=== PATIENT | male | born 1955 | race Caucasian/White ===

== ENCOUNTER 2016-10-24 19:54 | Emergency (ER) | payer OTHER ==
[~2016-10-24] VITALS: Ht 190.5 cm; Wt 97.7 kg
[~2016-10-24 19:54] MED LIST: ACTOS45 MG PO; ALDACTONE25 MG PO; ALTACE1.25 M1; ALTACE10 MG PO; AMARYL1 MG; AMARYL4 MG PO; AMLODIPINE BESY10 MG PO; AMOXICILLIN500 M1 PO; ASPIR-LOW81 MG PO; ASPIR-TRIN325 M1 PO; CARVEDILOL25 MG PO; COUMADIN1 MG PO; COUMADIN3 MG PO; FLAGYL250 MG PO; FLAGYL500 MG PO; FLORASTOR250 MG PO; FORTAMET500 M1; FUROSEMIDE40 MG PO; GLIMEPIRIDE4 MG PO; GLUCOPHAGE1000 MG PO; GLUCOPHAGE500 MG PO; HUMALOG100 UNIT/2 SC; HYDRALAZINE HCL25 MG PO; JANUVIA100 MG PO; LANTUS 3 M100 UNITS1 SC; LASIX40 MG PO; LEVEMIR FL100 UNITS/ SC; LIPITOR40 MG PO; LOVENOX100 MG/1 M SC; METFORMIN HCL1000 MG PO; METRONIDAZOLE500 MG PO; MIRALAX17 GM PO; NOVOLOG PE100 UNITS/ SC; ONDANSETRON HCL4 MG PO; PERCOCET 5/31 TABLET PO; PLAVIX75 MG PO; ROCEPHIN1000 MG IM; SPIRONOLACTONE25 MG PO; TOPROL XL50 MG; TRICOR145 MG PO; VANCOMYCIN1 GM/250 M IV; WARFARIN SODIUM1 MG PO; WARFARIN SODIUM5 MG PO; XARELTO15 MG PO; ZOFRAN4 MG PO; ZYVOX600 MG PO
[2016-10-24 20:14] VITALS: BP 130/77
[2016-10-24 20:32] LABS: POINT-OF-CARE METER ID UU13113778; POINT-OF-CARE USER ID 608261302
[2016-10-24 22:45] LABS: HEMATOCRIT 30.7 % (38.0-50.0); MCH 29.3 PG (29.0-34.0); MCHC 33.2 G/DL (30.0-36.0); MCV 88.2 FL (86-99); MEAN PLAT.VOLUME 9.3 uM^3 (9.0-12.4); PLATELET COUNT 373 K/uL (156-360); RBC DIS.WIDTH-CV 15.7 % (11.8-14.6); RBC DIS.WIDTH-SD 49.3 % (39-53); RED BLOOD COUNT 3.48 M/uL (4.00-5.50); WHITE BLOOD COUNT 7.6 K/uL (4.1-10.2)
[2016-10-24 22:53] LABS: CHLORIDE 94 mEq/L (99-109); POTASSIUM 4.7 mEq/L (3.7-5.4); SODIUM 127 mEq/L (136-147)
[2016-10-24 22:54] LABS: GLUCOSE 354 mg/dL (70-99)
[2016-10-24 22:56] LABS: ANION GAP 12 MEQ/L (2-14)
[2016-10-24 22:58] LABS: GFR ESTIMATE (CALCULATED) 41 mL/min/
[2016-10-24 22:59] LABS: UREA NITROGEN (BUN) 54 mg/dL (9-23)
== END 2016-10-24 23:40 | disposition left against medical advice (07) ==
LOC: EME 19:54
PROVIDERS: Emergency Medicine
DX: E11.65 Type 2 diabetes mellitus with hyperglycemia (principal); R53.1 Weakness; Z79.4 Long term (current) use of insulin; Z53.21 Procedure and treatment not carried out due to patient leaving prior to being seen by health care provider
CPT/HCPCS: 80048; 81003; 82009; 82948; 85027; 87086

== ENCOUNTER 2016-10-26 08:16 | Inpatient (IN) | payer OTHER ==
[~2016-10-26] VITALS: Ht 190.5 cm; Wt 89.1 kg
[2016-10-26 09:06] LABS: EOSINOPHIL (%) 0 % (0-5); IMMATURE GRANULOCYTE (%) 1.3 % (0.0-0.7); IMMATURE GRANULOCYTE COUNT 1.5 K/uL; LYMPHOCYTE COUNT 0.8 K/uL (1.0-2.8); MCH 28.9 PG (29.0-34.0); MCHC 32.4 G/DL (30.0-36.0); MCV 89.2 FL (86-99); MEAN PLAT.VOLUME 9.4 uM^3 (9.0-12.4); MONOCYTE (%) 7.6 % (3-12); MONOCYTE COUNT 0.9 K/uL (0-0.8); NEUTROPHIL (%) 83.7 % (45-76); NEUTROPHIL COUNT 9.7 K/uL (1.8-6.4); PLATELET COUNT 299 K/uL (156-360); RBC DIS.WIDTH-CV 15.7 % (11.8-14.6); RBC DIS.WIDTH-SD 49.5 % (39-53); RED BLOOD COUNT 3.25 M/uL (4.00-5.50); WHITE BLOOD COUNT 11.6 K/uL (4.1-10.2)
[2016-10-26 09:17] LABS: INTER. NORMALIZED RATIO 2.5; PTT 38.4 (25-32)
[2016-10-26 09:40] LABS: ANION GAP 13 MEQ/L (2-14); CHLORIDE 94 MEQ/L (99-109); GFR ESTIMATE (CALCULATED) 55 mL/min/; GLUCOSE 353 mg/dL (70-99); SAMPLE HEMOLYSIS CHECK 0; SAMPLE ICTERIC CHECK 0; SAMPLE LIPEMIA CHECK 0; SODIUM 128 MEQ/L (136-147); UREA NITROGEN (BUN) 41 mg/dL (9-23)
[2016-10-26 09:50] LABS: BASE EXCESS -3.3 mEq/L (-3 to +3); BICARBONATE 21.1 mEq/L (22-26); METHEMOGLOBIN 0.1 % (0-1.5); PCO2 34 mm Hg (35-45); PO2 64 mm Hg (80-100)
[2016-10-26 09:51] LABS: COMMENTS - BLOOD GASES A+C+; SITE RR
[2016-10-26 09:52] LABS: DEVICE RA; TOTAL RESP RATE 14 resp/min
[2016-10-26 10:01] LABS: TROP-I INTERPRETATION NEGATIVE; TROPONIN-I 0.05 ng/mL (0.0-0.30)
[2016-10-26 12:11] LABS: POINT-OF-CARE METER ID UU14100415
[2016-10-26] MEDS ORDERED: COUMADIN4 MG PO (13:42)
[2016-10-26] MEDS ORDERED: NOVOLOG PE100 UNITS/ SC (13:45)
[2016-10-26] MEDS ORDERED: METOLAZONE2.5 MG PO (13:46)
[2016-10-26] MEDS ORDERED: K-DUR20 MEQ PO (13:46)
[2016-10-26 13:49] LABS: POINT-OF-CARE METER ID UU14100415
[2016-10-26 14:34] LABS: POINT-OF-CARE METER ID UU14100415
[2016-10-26 16:10] LABS: POINT-OF-CARE METER ID UU14100415
[2016-10-26 17:27] VITALS: BP 129/62
[2016-10-26 19:16] LABS: POINT-OF-CARE METER ID UU14100415
[2016-10-26 20:25] VITALS: BP 144/70
[2016-10-27] VITALS (7 sets, daily range): BP systolic 117–153; BP diastolic 58–81
[2016-10-27 06:07] LABS: HEMATOCRIT 27.4 % (38.0-50.0); MCH 29.2 PG (29.0-34.0); MCHC 32.5 G/DL (30.0-36.0); MCV 89.8 FL (86-99); MEAN PLAT.VOLUME 9.3 uM^3 (9.0-12.4); PLATELET COUNT 249 K/uL (156-360); RBC DIS.WIDTH-CV 16.2 % (11.8-14.6); RBC DIS.WIDTH-SD 52.8 % (39-53); RED BLOOD COUNT 3.05 M/uL (4.00-5.50)
[2016-10-27 06:16] LABS: INTER. NORMALIZED RATIO 1.9; PROTHROMBIN TIME 19.4 (9.2-11.2)
[2016-10-27 06:30] LABS: ANION GAP 6 MEQ/L (2-14); CHLORIDE 100 MEQ/L (99-109); GFR ESTIMATE (CALCULATED) > 59 mL/min/; GLUCOSE 146 mg/dL (70-99); POTASSIUM 4.2 MEQ/L (3.7-5.4); SAMPLE HEMOLYSIS CHECK 0; SAMPLE ICTERIC CHECK 0; SAMPLE LIPEMIA CHECK 0; SODIUM 133 MEQ/L (136-147); UREA NITROGEN (BUN) 35 mg/dL (9-23)
[2016-10-27 12:15] LABS: HEMATOCRIT 26.6 % (38.0-50.0); MCH 28.5 PG (29.0-34.0); MCHC 31.6 G/DL (30.0-36.0); MCV 90.2 FL (86-99); MEAN PLAT.VOLUME 9.7 uM^3 (9.0-12.4); PLATELET COUNT 262 K/uL (156-360); RBC DIS.WIDTH-CV 16.4 % (11.8-14.6); RBC DIS.WIDTH-SD 54.8 % (39-53); RED BLOOD COUNT 2.95 M/uL (4.00-5.50); WHITE BLOOD COUNT 11.5 K/uL (4.1-10.2)
[2016-10-27 12:41] LABS: Estimated Average Glucose 341 mg/dL (70-123)
[2016-10-27 13:01] LABS: POINT-OF-CARE METER ID UU13113700
[2016-10-27 13:26] LABS: HEMOGLOBIN A1c (GLYCOHEMOGLOB) 13.5 % HGB (Below 5.7)
[2016-10-27 20:35] LABS: POINT-OF-CARE METER ID UU13113700
[2016-10-28] VITALS (7 sets, daily range): BP systolic 102–148; BP diastolic 57–75
[2016-10-28 06:31] LABS: GFR ESTIMATE (CALCULATED) > 59 mL/min/; INTER. NORMALIZED RATIO 1.6; PROTHROMBIN TIME 16.9 (9.2-11.2)
[2016-10-28 08:42] LABS: POINT-OF-CARE METER ID UU14162513
[2016-10-28 08:42] LABS: POINT-OF-CARE METER ID UU14162513
[2016-10-28 13:10] LABS: POINT-OF-CARE METER ID UU14162513
[2016-10-28 16:47] LABS: POINT-OF-CARE METER ID UU14162513
[2016-10-29] VITALS (7 sets, daily range): BP systolic 108–141; BP diastolic 62–72
[2016-10-29 07:39] LABS: INTER. NORMALIZED RATIO 1.7; PROTHROMBIN TIME 18.1 (9.2-11.2)
[2016-10-29 07:42] LABS: EOSINOPHIL (%) 0.2 % (0-5); HEMATOCRIT 25.4 % (38.0-50.0); IMMATURE GRANULOCYTE (%) 1.1 % (0.0-0.7); IMMATURE GRANULOCYTE COUNT 0.2 K/uL; LYMPHOCYTE COUNT 0.6 K/uL (1.0-2.8); MCH 28.1 PG (29.0-34.0); MCHC 31.5 G/DL (30.0-36.0); MCV 89.1 FL (86-99); MEAN PLAT.VOLUME 9.5 uM^3 (9.0-12.4); MONOCYTE (%) 6.8 % (3-12); MONOCYTE COUNT 1.1 K/uL (0-0.8); NEUTROPHIL (%) 87.9 % (45-76); NEUTROPHIL COUNT 13.6 K/uL (1.8-6.4); PLATELET COUNT 261 K/uL (156-360); RBC DIS.WIDTH-SD 51.8 % (39-53); RED BLOOD COUNT 2.85 M/uL (4.00-5.50)
[2016-10-29 07:43] LABS: WHITE BLOOD COUNT 15.5 K/uL (4.1-10.2)
[2016-10-29 07:50] LABS: ALKALINE PHOSPHATASE 124 IU/L (3-129); ANION GAP 9 MEQ/L (2-14); CHLORIDE 99 MEQ/L (99-109); GFR ESTIMATE (CALCULATED) > 59 mL/min/; GLUCOSE 144 mg/dL (70-99); POTASSIUM 4.1 MEQ/L (3.7-5.4); SAMPLE HEMOLYSIS CHECK 0; SAMPLE ICTERIC CHECK 0; SAMPLE LIPEMIA CHECK 0; SODIUM 131 MEQ/L (136-147); TOTAL BILIRUBIN 0.5 MG/DL (0.0-1.0); UREA NITROGEN (BUN) 31 mg/dL (9-23)
[2016-10-29 16:55] LABS: POINT-OF-CARE USER ID STWLMB34
[2016-10-30] VITALS (8 sets, daily range): BP systolic 105–127; BP diastolic 60–89
[2016-10-30 07:27] LABS: INTER. NORMALIZED RATIO 2.2
[2016-10-30 07:42] LABS: ANION GAP 7 MEQ/L (2-14); CHLORIDE 101 MEQ/L (99-109); GFR ESTIMATE (CALCULATED) > 59 mL/min/; GLUCOSE 153 mg/dL (70-99); MAGNESIUM 1.7 mg/dl (1.3-2.7); POTASSIUM 4.3 MEQ/L (3.7-5.4); SAMPLE HEMOLYSIS CHECK 0; SAMPLE ICTERIC CHECK 0; SAMPLE LIPEMIA CHECK 0; SODIUM 130 MEQ/L (136-147); UREA NITROGEN (BUN) 30 mg/dL (9-23)
[2016-10-30 08:23] LABS: EOSINOPHIL (%) 0.3 % (0-5); IMMATURE GRANULOCYTE COUNT 0.1 K/uL; LYMPHOCYTE COUNT 0.9 K/uL (1.0-2.8); MCH 28.5 PG (29.0-34.0); MCHC 31.5 G/DL (30.0-36.0); MCV 90.5 FL (86-99); MEAN PLAT.VOLUME 9.6 uM^3 (9.0-12.4); MONOCYTE COUNT 0.9 K/uL (0-0.8); NEUTROPHIL COUNT 10.2 K/uL (1.8-6.4); PLATELET COUNT 229 K/uL (156-360); RBC DIS.WIDTH-CV 16.1 % (11.8-14.6); RBC DIS.WIDTH-SD 53.4 % (39-53); WHITE BLOOD COUNT 12.1 K/uL (4.1-10.2)
[2016-10-30 08:26] LABS: RED BLOOD COUNT 2.21 M/uL (4.00-5.50)
[2016-10-31] VITALS (8 sets, daily range): BP systolic 117–149; BP diastolic 57–82
[2016-10-31 07:15] LABS: HEMATOCRIT 22.8 % (38.0-50.0); MCH 28.9 PG (29.0-34.0); MCV 90.1 FL (86-99); MEAN PLAT.VOLUME 9.6 uM^3 (9.0-12.4); PLATELET COUNT 238 K/uL (156-360); RBC DIS.WIDTH-CV 17.3 % (11.8-14.6); RBC DIS.WIDTH-SD 57.7 % (39-53); RED BLOOD COUNT 2.53 M/uL (4.00-5.50); WHITE BLOOD COUNT 9.2 K/uL (4.1-10.2)
[2016-10-31 07:29] LABS: INTER. NORMALIZED RATIO 1.5; PROTHROMBIN TIME 15.4 (9.2-11.2)
[2016-10-31 07:43] LABS: ANION GAP 5 MEQ/L (2-14); CHLORIDE 103 MEQ/L (99-109); GFR ESTIMATE (CALCULATED) > 59 mL/min/; GLUCOSE 180 mg/dL (70-99); HEMATOLOGY COMMENT 1 SMEAR COMPATIBLE; POTASSIUM 4.3 MEQ/L (3.7-5.4); SAMPLE HEMOLYSIS CHECK 0; SAMPLE ICTERIC CHECK 0; SAMPLE LIPEMIA CHECK 0; SODIUM 132 MEQ/L (136-147); UREA NITROGEN (BUN) 29 mg/dL (9-23); USER ID CL
[2016-10-31 07:44] LABS: EOSINOPHIL (%) 0.4 % (0-5); IMMATURE GRANULOCYTE (%) 2.3 % (0.0-0.7); IMMATURE GRANULOCYTE COUNT 0.2 K/uL; LYMPHOCYTE COUNT 1.1 K/uL (1.0-2.8); MONOCYTE (%) 7.2 % (3-12); MONOCYTE COUNT 0.7 K/uL (0-0.8); NEUTROPHIL (%) 78.2 % (45-76); NEUTROPHIL COUNT 7.2 K/uL (1.8-6.4)
[2016-11-01 00:17] VITALS: BP 130/61
[2016-11-01 05:45] LABS: HEMATOCRIT 25.3 % (38.0-50.0); MCV 89.1 FL (86-99)
[2016-11-01 06:00] LABS: INTER. NORMALIZED RATIO 1.2; PROTHROMBIN TIME 12.6 (9.2-11.2)
[2016-11-01 06:12] VITALS: BP 133/69
[2016-11-01 15:29] VITALS: BP 132/68
[2016-11-02 00:15] VITALS: BP 139/88
[2016-11-02 07:25] VITALS: BP 132/70
[2016-11-02 10:17] LABS: INTER. NORMALIZED RATIO 1.2; PROTHROMBIN TIME 12.5 (9.2-11.2)
[2016-11-02 15:40] VITALS: BP 122/60
[2016-11-02 23:23] VITALS: BP 144/69
[2016-11-03 07:26] LABS: INTER. NORMALIZED RATIO 1.2; PROTHROMBIN TIME 12.1 (9.2-11.2)
[2016-11-03 08:18] VITALS: BP 147/79
[2016-11-03 08:41] LABS: HEMATOCRIT 25.5 % (38.0-50.0); MCH 28.7 PG (29.0-34.0); MCHC 32.2 G/DL (30.0-36.0); MCV 89.2 FL (86-99); MEAN PLAT.VOLUME 8.8 uM^3 (9.0-12.4); PLATELET COUNT 233 K/uL (156-360); RBC DIS.WIDTH-CV 16.2 % (11.8-14.6); RED BLOOD COUNT 2.86 M/uL (4.00-5.50)
[2016-11-03 08:49] LABS: ALKALINE PHOSPHATASE 135 IU/L (3-129); ANION GAP 5 MEQ/L (2-14); CHLORIDE 105 MEQ/L (99-109); GFR ESTIMATE (CALCULATED) > 59 mL/min/; GLUCOSE 111 mg/dL (70-99); POTASSIUM 4.2 MEQ/L (3.7-5.4); SAMPLE HEMOLYSIS CHECK 0; SAMPLE ICTERIC CHECK 0; SAMPLE LIPEMIA CHECK 0; SODIUM 135 MEQ/L (136-147); UREA NITROGEN (BUN) 14 mg/dL (9-23)
[2016-11-03 08:50] LABS: TOTAL BILIRUBIN 0.3 MG/DL (0.0-1.0)
[2016-11-03 16:32] VITALS: BP 148/79
[2016-11-03 19:16] LABS: POINT-OF-CARE METER ID UU13113675; POINT-OF-CARE USER ID 515036437
[2016-11-03 20:21] VITALS: BP 153/80
[2016-11-04 00:22] VITALS: BP 178/84
[2016-11-04 04:05] VITALS: BP 133/70
[2016-11-04 07:15] LABS: EOSINOPHIL (%) 0.4 % (0-5); HEMATOCRIT 26.3 % (38.0-50.0); IMMATURE GRANULOCYTE (%) 0.8 % (0.0-0.7); IMMATURE GRANULOCYTE COUNT 0.1 K/uL; LYMPHOCYTE COUNT 0.9 K/uL (1.0-2.8); MCH 28.1 PG (29.0-34.0); MCHC 31.2 G/DL (30.0-36.0); MCV 90.1 FL (86-99); MONOCYTE (%) 5.9 % (3-12); MONOCYTE COUNT 0.4 K/uL (0-0.8); NEUTROPHIL (%) 80.8 % (45-76); PLATELET COUNT 220 K/uL (156-360); RBC DIS.WIDTH-SD 52.9 % (39-53); RED BLOOD COUNT 2.92 M/uL (4.00-5.50); WHITE BLOOD COUNT 7.4 K/uL (4.1-10.2)
[2016-11-04 07:37] LABS: INTER. NORMALIZED RATIO 1.3; PROTHROMBIN TIME 12.8 (9.2-11.2); TROP-I INTERPRETATION NEGATIVE; TROPONIN-I 0.06 ng/mL (0.0-0.30)
[2016-11-04 07:42] LABS: ANION GAP 3 MEQ/L (2-14); CHLORIDE 103 MEQ/L (99-109); GFR ESTIMATE (CALCULATED) > 59 mL/min/; GLUCOSE 152 mg/dL (70-99); POTASSIUM 4.6 MEQ/L (3.7-5.4); SAMPLE HEMOLYSIS CHECK 0; SAMPLE ICTERIC CHECK 0; SAMPLE LIPEMIA CHECK 0; SODIUM 134 MEQ/L (136-147); UREA NITROGEN (BUN) 14 mg/dL (9-23)
[2016-11-04 07:48] VITALS: BP 143/90
[2016-11-04 11:56] VITALS: BP 153/84
[2016-11-04 16:17] VITALS: BP 146/74
[2016-11-04 19:51] VITALS: BP 169/87
[2016-11-05 00:17] VITALS: BP 118/72
[2016-11-05 03:36] VITALS: BP 134/72
[2016-11-05 07:18] VITALS: BP 151/76
[2016-11-05 07:50] LABS: INTER. NORMALIZED RATIO 1.2; PROTHROMBIN TIME 12.7 (9.2-11.2)
[2016-11-05 08:01] LABS: ALKALINE PHOSPHATASE 107 IU/L (3-129); ANION GAP 6 MEQ/L (2-14); CHLORIDE 103 MEQ/L (99-109); GFR ESTIMATE (CALCULATED) > 59 mL/min/; GLUCOSE 118 mg/dL (70-99); POTASSIUM 4.2 MEQ/L (3.7-5.4); SAMPLE HEMOLYSIS CHECK 0; SAMPLE ICTERIC CHECK 0; SAMPLE LIPEMIA CHECK 0; SODIUM 134 MEQ/L (136-147); TOTAL BILIRUBIN 0.3 MG/DL (0.0-1.0); UREA NITROGEN (BUN) 12 mg/dL (9-23)
[2016-11-05 09:36] LABS: ABS NEUTROPHIL COUNT 5.93; ANISOCYTOSIS 1+; HEMATOCRIT 23.9 % (38.0-50.0); MCH 28.5 PG (29.0-34.0); MCHC 31.8 G/DL (30.0-36.0); MCV 89.5 FL (86-99); MEAN PLAT.VOLUME 8.7 uM^3 (9.0-12.4); PLAT.SUFFICIENCY ADEQUATE; PLATELET COUNT 178 K/uL (156-360); POLYCHROMASIA 1+; RBC DIS.WIDTH-CV 15.9 % (11.8-14.6); RBC DIS.WIDTH-SD 51.3 % (39-53); RED BLOOD COUNT 2.67 M/uL (4.00-5.50); USER ID NJR; WHITE BLOOD COUNT 6.9 K/uL (4.1-10.2)
[2016-11-05 09:37] LABS: DELETE MACHINE DIFF? YES
[2016-11-05 16:04] VITALS: BP 137/71
[2016-11-05 23:30] VITALS: BP 140/82
[2016-11-06] VITALS (10 sets, daily range): BP systolic 140–165; BP diastolic 75–95
[2016-11-06 07:05] LABS: ABSOLUTE RETICULOCYTE CT. 0.05 M/uL (0.02-0.08); IMM.RETIC FRACTION 13.2 % (3-19); RETIC HGB EQUIVALENT 22.4 (28-36); RETICULOCYTE COUNT 2.2 % (0.5-1.8)
[2016-11-06 07:17] LABS: INTER. NORMALIZED RATIO 1.2; PROTHROMBIN TIME 12.5 (9.2-11.2)
[2016-11-06 07:35] LABS: ALKALINE PHOSPHATASE 103 IU/L (3-129); ANION GAP 6 MEQ/L (2-14); CHLORIDE 104 MEQ/L (99-109); GFR ESTIMATE (CALCULATED) > 59 mL/min/; IRON 26 MCG/DL (35-150); POTASSIUM 4.2 MEQ/L (3.7-5.4); SAMPLE HEMOLYSIS CHECK 0; SAMPLE ICTERIC CHECK 0; SAMPLE LIPEMIA CHECK 0; SODIUM 135 MEQ/L (136-147); UREA NITROGEN (BUN) 15 mg/dL (9-23)
[2016-11-06 07:38] LABS: GLUCOSE 187 mg/dL (70-99); TOTAL BILIRUBIN 0.2 MG/DL (0.0-1.0)
[2016-11-06 07:47] LABS: EOSINOPHIL (%) 1.1 % (0-5); EOSINOPHIL COUNT 0.1 K/uL (0-0.3); HEMATOCRIT 21.9 % (38.0-50.0); IMMATURE GRANULOCYTE (%) 0.6 % (0.0-0.7); LYMPHOCYTE COUNT 0.9 K/uL (1.0-2.8); MCH 28.9 PG (29.0-34.0); MCV 90.5 FL (86-99); MEAN PLAT.VOLUME 9.1 uM^3 (9.0-12.4); MONOCYTE COUNT 0.3 K/uL (0-0.8); NEUTROPHIL (%) 71.8 % (45-76); NEUTROPHIL COUNT 3.4 K/uL (1.8-6.4); PLATELET COUNT 180 K/uL (156-360); RBC DIS.WIDTH-CV 15.7 % (11.8-14.6); RBC DIS.WIDTH-SD 51.8 % (39-53); RED BLOOD COUNT 2.42 M/uL (4.00-5.50)
[2016-11-06 07:48] LABS: WHITE BLOOD COUNT 4.7 K/uL (4.1-10.2)
[2016-11-06 08:09] LABS: FERRITIN 596 NG/ML (22-322)
[2016-11-06] MEDS ORDERED: FERROUS SULFAT325 MG PO (09:37)
[2016-11-06] MEDS ORDERED: COUMADIN1 MG PO (09:41)
[2016-11-06] MEDS ORDERED: ENDOCET 5-3251 EACH PO (09:43)
[2016-11-06] MEDS ORDERED: OXYCODONE-APAP1 EACH PO (09:43)
[2016-11-06] MEDS ORDERED: NOVOLOG PE100 UNITS/ SC (09:44)
[2016-11-06] MEDS ORDERED: PANTOPRAZOLE SO40 MG PO (09:44)
[2016-11-06] MEDS ORDERED: LEVEMIR100 UNIT/2 SC (09:44)
[2016-11-06] MEDS ORDERED: BISAC-EVAC10 MG PR (09:45)
[2016-11-06] MEDS ORDERED: COUMADIN2 MG PO (09:45)
[2016-11-06] MEDS ORDERED: DOCUSATE SODIU100 MG PO (09:45)
[2016-11-06] MEDS ORDERED: POLYETHYLENE GL17 GM PO (09:45)
[2016-11-06] MEDS ORDERED: FOLIC ACID1 MG PO (09:56)
[2016-11-06] MEDS ORDERED: AMOX TR-K CLV1 EAC3 PO (13:20)
== END 2016-11-06 17:47 | DRG 617 ==
LOC: EME → EDBD 08:16 → EME 08:16 → EDOF 12:19 → 5WEST 12:19 → 2EAST 10-27 16:40 → 5WEST 10-27 16:40 → 2EAST 10-28 20:20
PROVIDERS: Emergency Medicine; Hospitalist; Internal Medicine; Internal Medicine Cardiovascular Disease; Surgery
DX: E11.69 Type 2 diabetes mellitus with other specified complication (principal); M86.172 Other acute osteomyelitis, left ankle and foot; E11.621 Type 2 diabetes mellitus with foot ulcer; L97.429 Non-pressure chronic ulcer of left heel and midfoot with unspecified severity; E11.628 Type 2 diabetes mellitus with other skin complications; L03.032 Cellulitis of left toe; L03.116 Cellulitis of left lower limb; L02.612 Cutaneous abscess of left foot; B95.1 Streptococcus, group B, as the cause of diseases classified elsewhere; E11.610 Type 2 diabetes mellitus with diabetic neuropathic arthropathy; D62 Acute posthemorrhagic anemia; M65.062 Abscess of tendon sheath, left lower leg; M65.072 Abscess of tendon sheath, left ankle and foot; E11.40 Type 2 diabetes mellitus with diabetic neuropathy, unspecified; N17.9 Acute kidney failure, unspecified; I13.0 Hypertensive heart and chronic kidney disease with heart failure and stage 1 through stage 4 chronic kidney disease, or unspecified chronic kidney disease; I50.42 Chronic combined systolic (congestive) and diastolic (congestive) heart failure; E11.22 Type 2 diabetes mellitus with diabetic chronic kidney disease; E11.21 Type 2 diabetes mellitus with diabetic nephropathy; N18.3 Chronic kidney disease, stage 3 (moderate); E87.1 Hypo-osmolality and hyponatremia; I42.0 Dilated cardiomyopathy; E11.65 Type 2 diabetes mellitus with hyperglycemia; D63.1 Anemia in chronic kidney disease; I27.2 Other secondary pulmonary hypertension; I08.1 Rheumatic disorders of both mitral and tricuspid valves; R11.2 Nausea with vomiting, unspecified; T36.95XA Adverse effect of unspecified systemic antibiotic, initial encounter; E78.5 Hyperlipidemia, unspecified; I25.10 Atherosclerotic heart disease of native coronary artery without angina pectoris; I25.5 Ischemic cardiomyopathy; Z95.5 Presence of coronary angioplasty implant and graft; I25.2 Old myocardial infarction; Z86.711 Personal history of pulmonary embolism; Z86.718 Personal history of other venous thrombosis and embolism; Z86.14 Personal history of Methicillin resistant Staphylococcus aureus infection; Z79.4 Long term (current) use of insulin
CPT/HCPCS: 36600; 71010; 73720; 80048; 80053; 80202; 81003; 82009; 82272; 82565; 82607; 82728; 82746; 82803; 82948; 83036; 83540; 83735; 84100; 84466; 84484; 85014; 85018; 85025; 85027; 85045; 85610; 85730; 86850; 86900; 86901; 86920; 87040; 87070; 87075; 87076; 87077; 87086; 87106; 87185; 87186; 87205; 88305; 88307; 88311; 93005; 97530 GO; 97530 GP; 99281; 99285; G0378; G8978 GP CJ; G8979 GP CH; G8987 GO CI; G8988 GO CH; J0692; J0696; J1170; J1644; J1815; J2250; J2274; J2405; J3010; J3370; J7030; J7050; P9016; P9047; S0020

== ENCOUNTER 2016-11-06 11:19 | Inpatient (IN) | payer OTHER ==
[~2016-11-06] VITALS: Ht 190.5 cm; Wt 93.3 kg
[~2016-11-06 11:19] MED LIST changes: +BISAC-EVAC10 MG PR; +COUMADIN2 MG PO; +COUMADIN4 MG PO; +DOCUSATE SODIU100 MG PO; +ENDOCET 5-3251 EACH PO; +FERROUS SULFAT325 MG PO; +FOLIC ACID1 MG PO; +K-DUR20 MEQ PO; +LEVEMIR100 UNIT/2 SC; +METOLAZONE2.5 MG PO; +OXYCODONE-APAP1 EACH PO; +PANTOPRAZOLE SO40 MG PO; +POLYETHYLENE GL17 GM PO
[2016-11-06] MEDS ORDERED: AMOX TR-K CLV1 EAC3 PO (13:20)
[2016-11-06 18:00] VITALS: BP 182/98
[2016-11-06 19:10] VITALS: BP 142/78
[2016-11-06 21:33] LABS: POINT-OF-CARE METER ID UU14174215
[2016-11-07 02:22] VITALS: BP 159/79
[2016-11-07 04:25] VITALS: BP 167/93
[2016-11-07 05:43] LABS: INTER. NORMALIZED RATIO 1.4; PROTHROMBIN TIME 13.9 (9.2-11.2)
[2016-11-07 05:47] LABS: HEMATOCRIT 26.6 % (38.0-50.0); MCH 28.7 PG (29.0-34.0); MCHC 32.3 G/DL (30.0-36.0); MCV 88.7 FL (86-99); MEAN PLAT.VOLUME 8.9 uM^3 (9.0-12.4); PLATELET COUNT 158 K/uL (156-360); RBC DIS.WIDTH-CV 15.8 % (11.8-14.6)
[2016-11-07 05:59] LABS: ALKALINE PHOSPHATASE 94 IU/L (3-129); ANION GAP 4 MEQ/L (2-14); CHLORIDE 106 MEQ/L (99-109); GFR ESTIMATE (CALCULATED) > 59 mL/min/; GLUCOSE 128 mg/dL (70-99); POTASSIUM 4.4 MEQ/L (3.7-5.4); SAMPLE HEMOLYSIS CHECK 0; SAMPLE ICTERIC CHECK 0; SAMPLE LIPEMIA CHECK 0; SODIUM 137 MEQ/L (136-147); UREA NITROGEN (BUN) 13 mg/dL (9-23)
[2016-11-07 06:03] LABS: TOTAL BILIRUBIN 0.3 MG/DL (0.0-1.0)
[2016-11-07 06:59] LABS: POINT-OF-CARE METER ID UU13113720; POINT-OF-CARE USER ID ENVGAF
[2016-11-07 08:20] VITALS: BP 148/78
[2016-11-07 11:15] LABS: POINT-OF-CARE METER ID UU13113720; POINT-OF-CARE USER ID ENVGAF
[2016-11-07 15:54] VITALS: BP 148/86
[2016-11-07 16:38] LABS: POINT-OF-CARE METER ID UU14174215
[2016-11-07 20:21] VITALS: BP 152/80
[2016-11-07 21:13] LABS: POINT-OF-CARE METER ID UU13113720
[2016-11-08 05:32] LABS: INTER. NORMALIZED RATIO 1.5; PROTHROMBIN TIME 15.4 (9.2-11.2)
[2016-11-08 05:50] VITALS: BP 158/78
[2016-11-08 07:38] LABS: POINT-OF-CARE METER ID UU13113720
[2016-11-08 11:35] LABS: POINT-OF-CARE METER ID UU13113720; POINT-OF-CARE USER ID AHSSSJB31
[2016-11-08 15:41] VITALS: BP 157/86
[2016-11-08 16:30] VITALS: BP 157/86
[2016-11-08 16:31] LABS: POINT-OF-CARE METER ID UU14174215
[2016-11-08 21:05] LABS: POINT-OF-CARE METER ID UU13113720
[2016-11-09 05:46] VITALS: BP 132/86
[2016-11-09 06:14] LABS: INTER. NORMALIZED RATIO 1.7; PROTHROMBIN TIME 17.4 (9.2-11.2)
[2016-11-09 07:29] LABS: POINT-OF-CARE METER ID UU13113720; POINT-OF-CARE USER ID AHSSSJB31
[2016-11-09 11:34] LABS: POINT-OF-CARE METER ID UU13113720; POINT-OF-CARE USER ID AHSSSJB31
[2016-11-09 15:35] VITALS: BP 155/92
[2016-11-09 16:21] LABS: POINT-OF-CARE METER ID UU13113720; POINT-OF-CARE USER ID AHSSSJB31
[2016-11-09 22:05] LABS: POINT-OF-CARE METER ID UU14174215
[2016-11-10 05:40] VITALS: BP 136/84
[2016-11-10 05:58] LABS: INTER. NORMALIZED RATIO 1.8; PROTHROMBIN TIME 18.7 (9.2-11.2)
[2016-11-10 07:42] LABS: POINT-OF-CARE METER ID UU14174215; POINT-OF-CARE USER ID AHSSSJB31
[2016-11-10 11:32] LABS: POINT-OF-CARE METER ID UU14174215; POINT-OF-CARE USER ID AHSSSJB31
[2016-11-10 15:35] VITALS: BP 134/77
[2016-11-10 16:17] LABS: POINT-OF-CARE METER ID UU14174215
[2016-11-10 20:59] LABS: POINT-OF-CARE METER ID UU14174215
[2016-11-11 05:27] VITALS: BP 138/84
[2016-11-11 06:53] LABS: POINT-OF-CARE METER ID UU13113720
[2016-11-11 07:16] LABS: INTER. NORMALIZED RATIO 1.9
[2016-11-11 11:37] LABS: POINT-OF-CARE METER ID UU14174215
[2016-11-11 15:13] VITALS: BP 154/85
[2016-11-11 16:22] LABS: POINT-OF-CARE METER ID UU14174215
[2016-11-11 17:27] VITALS: BP 158/84
[2016-11-11 21:14] LABS: POINT-OF-CARE METER ID UU13113720; POINT-OF-CARE USER ID 610211320
[2016-11-12 05:39] VITALS: BP 160/93
[2016-11-12 05:39] LABS: INTER. NORMALIZED RATIO 2.1
[2016-11-12 07:18] LABS: POINT-OF-CARE METER ID UU14174215; POINT-OF-CARE USER ID AHSSSJB31
[2016-11-12 11:25] LABS: POINT-OF-CARE METER ID UU14174215; POINT-OF-CARE USER ID AHSSSJB31
[2016-11-12 13:13] VITALS: BP 158/82
[2016-11-12 14:50] VITALS: BP 132/76
[2016-11-12 15:55] LABS: POINT-OF-CARE METER ID UU14174215
[2016-11-12 21:41] LABS: POINT-OF-CARE METER ID UU14174215
[2016-11-13 04:28] VITALS: BP 135/83
[2016-11-13 04:53] LABS: PROTHROMBIN TIME 20.4 (9.2-11.2)
[2016-11-13 07:41] LABS: POINT-OF-CARE METER ID UU13113720; POINT-OF-CARE USER ID AHSSSJB31
[2016-11-13 11:57] LABS: POINT-OF-CARE METER ID UU14174215; POINT-OF-CARE USER ID AHSSSJB31
[2016-11-13 15:53] VITALS: BP 143/69
[2016-11-13 16:35] LABS: POINT-OF-CARE METER ID UU14174215
[2016-11-13 22:15] LABS: POINT-OF-CARE METER ID UU14174215
[2016-11-14 05:47] VITALS: BP 150/76
[2016-11-14 07:39] LABS: POINT-OF-CARE METER ID UU14174215; POINT-OF-CARE USER ID AHSSSJB31
[2016-11-14 09:18] LABS: PROTHROMBIN TIME 20.7 (9.2-11.2)
[2016-11-14 12:03] LABS: POINT-OF-CARE METER ID UU14174215; POINT-OF-CARE USER ID AHSSSJB31
[2016-11-14 16:23] VITALS: BP 136/85
[2016-11-14 17:08] LABS: POINT-OF-CARE METER ID UU13113720
[2016-11-14 21:12] LABS: POINT-OF-CARE METER ID UU14174215
[2016-11-14] MEDS ORDERED: LEVEMIR100 UNIT/2 SC (21:45)
[2016-11-14] MEDS ORDERED: FOLIC ACID1 MG PO (21:45)
[2016-11-14] MEDS ORDERED: THERAGRAN1 TABLET PO (21:45)
[2016-11-14] MEDS ORDERED: ASCORBIC ACID500 M3 PO (21:45)
[2016-11-14] MEDS ORDERED: ENDOCET 5-3251 EACH PO (21:45)
[2016-11-14] MEDS ORDERED: FERROUS SULFAT325 MG PO (21:45)
[2016-11-14] MEDS ORDERED: COUMADIN2 MG PO (21:46)
[2016-11-15 05:08] LABS: INTER. NORMALIZED RATIO 2.1; PROTHROMBIN TIME 21.6 (9.2-11.2)
[2016-11-15 06:11] VITALS: BP 142/70
[2016-11-15 07:16] LABS: POINT-OF-CARE METER ID UU13113720; POINT-OF-CARE USER ID ENVGAF
[2016-11-15 11:02] LABS: POINT-OF-CARE METER ID UU13113720; POINT-OF-CARE USER ID ENVGAF
== END 2016-11-15 13:13 | disposition home health service (06) | DRG 949 ==
LOC: 3WEST 11:19
PROVIDERS: Physical Medicine & Rehabilitation Pain Medicine
PROC: F07M0ZZ Range of Motion and Joint Mobility Treatment of Musculoskeletal System - Whole Body (ICD-10-PCS; principal; 2016-11-06)
DX: Z48.812 Encounter for surgical aftercare following surgery on the circulatory system (principal); Z89.512 Acquired absence of left leg below knee; D62 Acute posthemorrhagic anemia; I50.42 Chronic combined systolic (congestive) and diastolic (congestive) heart failure; E87.1 Hypo-osmolality and hyponatremia; I12.9 Hypertensive chronic kidney disease with stage 1 through stage 4 chronic kidney disease, or unspecified chronic kidney disease; E78.5 Hyperlipidemia, unspecified; E11.40 Type 2 diabetes mellitus with diabetic neuropathy, unspecified; N18.3 Chronic kidney disease, stage 3 (moderate); I25.10 Atherosclerotic heart disease of native coronary artery without angina pectoris; G54.6 Phantom limb syndrome with pain; E83.52 Hypercalcemia; E88.09 Other disorders of plasma-protein metabolism, not elsewhere classified; I25.5 Ischemic cardiomyopathy; E11.22 Type 2 diabetes mellitus with diabetic chronic kidney disease; G89.18 Other acute postprocedural pain; M62.81 Muscle weakness (generalized); Z95.5 Presence of coronary angioplasty implant and graft; Z86.711 Personal history of pulmonary embolism; I25.2 Old myocardial infarction; Z86.718 Personal history of other venous thrombosis and embolism; Z79.4 Long term (current) use of insulin; Z60.2 Problems related to living alone; Z79.01 Long term (current) use of anticoagulants
CPT/HCPCS: 80053; 82948; 85027; 85610; 97110 GO; 97530 GP; J1644; J1815

== ENCOUNTER 2017-05-02 17:31 | Inpatient (IN) | payer OTHER ==
[~2017-05-02] VITALS: Ht 188 cm; Wt 103.2 kg
[~2017-05-02 17:31] MED LIST changes: +AMOX TR-K CLV1 EAC3 PO; +ASCORBIC ACID500 M3 PO; +THERAGRAN1 TABLET PO
[2017-05-02 18:01] LABS: HEMATOCRIT 45.9 % (38.0-50.0); MCH 28.7 PG (29.0-34.0); MCHC 31.6 G/DL (30.0-36.0); MCV 90.7 FL (86-99); MEAN PLAT.VOLUME 9.7 uM^3 (9.0-12.4); PLATELET COUNT 192 K/uL (156-360); RBC DIS.WIDTH-CV 20.2 % (11.8-14.6); RBC DIS.WIDTH-SD 65.4 % (39-53); RED BLOOD COUNT 5.06 M/uL (4.00-5.50); WHITE BLOOD COUNT 9.2 K/uL (4.1-10.2)
[2017-05-02 18:08] LABS: CHLORIDE 104 mEq/L (99-109); POTASSIUM 3.9 mEq/L (3.7-5.4); SODIUM 136 mEq/L (136-147)
[2017-05-02 18:09] LABS: MAGNESIUM 1.4 mg/dL (1.3-2.7)
[2017-05-02 18:11] LABS: GLUCOSE 169 mg/dL (70-99)
[2017-05-02 18:12] LABS: ANION GAP 11 MEQ/L (2-14); TOTAL BILIRUBIN 1.9 mg/dL (0.0-1.0)
[2017-05-02 18:14] LABS: ALKALINE PHOSPHATASE 411 IU/L (3-129); GFR ESTIMATE (CALCULATED) 41 mL/min/
[2017-05-02 18:15] LABS: UREA NITROGEN (BUN) 38 mg/dL (9-23)
[2017-05-02 18:16] LABS: DIRECT BILIRUBIN 1.1 mg/dL (0.0-0.3)
[2017-05-02 18:18] LABS: LIPASE 2 U/L (1.0-51.0)
[2017-05-02 18:19] LABS: EOSINOPHIL (%) 0 % (0-5); IMMATURE GRANULOCYTE (%) 0.5 % (0.0-0.7); IMMATURE GRANULOCYTE COUNT 0.1 K/uL; INSTRUMENT ABS NEUTROPHIL CT 8.4 K/uL; LYMPHOCYTE COUNT 0.4 K/uL (1.0-2.8); MONOCYTE (%) 4.7 % (3-12); MONOCYTE COUNT 0.4 K/uL (0-0.8); NEUTROPHIL (%) 90.7 % (45-76); NEUTROPHIL COUNT 8.4 K/uL (1.8-6.4)
[2017-05-02 18:20] LABS: TROP-I INTERPRETATION NEGATIVE; TROPONIN-I 0.17 ng/mL (0.0-0.30)
[2017-05-02 18:26] LABS: INTER. NORMALIZED RATIO 1.2; PROTHROMBIN TIME 13.5 SEC (10.2-12.9)
[2017-05-02 18:28] LABS: PTT 31.3 SEC (25-37)
[2017-05-02] MEDS ORDERED: COL-RITE100 M1 PO (21:39)
[2017-05-02] MEDS ORDERED: BASAGLAR K100 UNIT/1 SC (21:40)
[2017-05-02] MEDS ORDERED: K-TAB10 MEQ PO (21:41)
[2017-05-02] MEDS ORDERED: LASIX20 MG PO (21:41)
[2017-05-02] MEDS ORDERED: LASIX40 MG PO (21:41)
[2017-05-02] MEDS ORDERED: SILVADENE20 GM TP (21:42)
[2017-05-03 00:19] LABS: ADD MIUA? YES; BILIRUBIN NEGATIVE; BLOOD MODERATE; COLOR AMBER ((YELLOW)); GLUCOSE (STRIP) >=500; KETONES NEGATIVE; LEUKOCYTES NEGATIVE; NITRITE NEGATIVE; PROTEIN (STRIP) >=500; SPECIFIC GRAVITY 1.032 (1.000-1.030); UROBILINOGEN 0.2 MG/DL (0.2-1.0)
[2017-05-03 00:48] LABS: EPITHELIAL CELLS RARE /HPF; RED BLOOD CELLS 0-5 /HPF (0-5); WHITE BLOOD CELLS 0-5 /HPF (0-5)
[2017-05-03 00:49] LABS: BACTERIA 2+ /HPF; CASTS PRESENT /LPF; CRYSTALS NONE SEEN; HYALINE CASTS 0-5 /LPF; MUCUS NONE SEEN /LPF; UCUL ADDED? NO
[2017-05-03 00:50] LABS: FINE GRANULAR CASTS 0-5 /LPF
[2017-05-03 01:20] VITALS: BP 136/87
[2017-05-03 02:22] LABS: METH RESISTANT S AUREUS PCR POSITIVE (NEGATIVE)
[2017-05-03 02:26] LABS: PROBE CHECK PASS
[2017-05-03 03:43] VITALS: BP 141/92
[2017-05-03 07:30] VITALS: BP 137/93
[2017-05-03 08:07] LABS: POINT-OF-CARE METER ID UU13113781
[2017-05-03 10:15] LABS: HEMATOCRIT 41.2 % (38.0-50.0); MCH 28.8 PG (29.0-34.0); MCHC 31.1 G/DL (30.0-36.0); MCV 92.6 FL (86-99); MEAN PLAT.VOLUME 10.2 uM^3 (9.0-12.4); PLATELET COUNT 142 K/uL (156-360); RBC DIS.WIDTH-CV 19.8 % (11.8-14.6); RBC DIS.WIDTH-SD 66.9 % (39-53); RED BLOOD COUNT 4.45 M/uL (4.00-5.50); WHITE BLOOD COUNT 6.5 K/uL (4.1-10.2)
[2017-05-03 10:40] LABS: ANION GAP 7 MEQ/L (2-14); CHLORIDE 102 MEQ/L (99-109); GFR ESTIMATE (CALCULATED) 41 mL/min/; GLUCOSE 170 mg/dL (70-99); POTASSIUM 4.1 MEQ/L (3.7-5.4); SAMPLE HEMOLYSIS CHECK 0; SAMPLE ICTERIC CHECK 0; SAMPLE LIPEMIA CHECK 0; SODIUM 133 MEQ/L (136-147); UREA NITROGEN (BUN) 43 mg/dL (9-23)
[2017-05-03 11:45] LABS: TROP-I INTERPRETATION NEGATIVE; TROPONIN-I 0.11 ng/mL (0.0-0.30)
[2017-05-03 11:53] LABS: POINT-OF-CARE METER ID UU13113698
[2017-05-03 11:58] VITALS: BP 108/81
[2017-05-03 15:30] VITALS: BP 122/83
[2017-05-03 15:43] LABS: TYPE OF FLUID PARACENTESIS
[2017-05-03 16:30] LABS: BODY FLUID LDH 87 IU/L; BODY FLUID PROTEIN < 3.0 G/DL
[2017-05-03 16:37] LABS: POINT-OF-CARE METER ID UU13113698
[2017-05-03 17:20] LABS: BODY FLUID RBC'S 340 /MM^3 (0-100); BODY FLUID WBC'S 369 /MM^3 (0-500); RED CELL AREA COUNTED 18; RED CELL DILUTION 1; WBC AREA COUNTED 18; WBC DILUTION 1; WHITE CELL RAW COUNT 664
[2017-05-03 17:53] LABS: BODY FLUID EOSINOPHILS 0 % (0-25); MONONUCLEAR WBC'S 93 %; POLYNUCLEAR WBC'S 7 % (0-25)
[2017-05-03 20:59] VITALS: BP 130/88
[2017-05-03 21:06] LABS: POINT-OF-CARE METER ID UU13113781
[2017-05-04] VITALS (7 sets, daily range): BP systolic 109–156; BP diastolic 62–83
[2017-05-04 06:11] LABS: HEMATOCRIT 39.7 % (38.0-50.0); MCH 28.5 PG (29.0-34.0); MCV 92.1 FL (86-99); MEAN PLAT.VOLUME 10.2 uM^3 (9.0-12.4); PLATELET COUNT 135 K/uL (156-360); RBC DIS.WIDTH-CV 19.4 % (11.8-14.6); RBC DIS.WIDTH-SD 65.1 % (39-53); RED BLOOD COUNT 4.31 M/uL (4.00-5.50); WHITE BLOOD COUNT 5.3 K/uL (4.1-10.2)
[2017-05-04 06:46] LABS: ANION GAP 4 MEQ/L (2-14); CHLORIDE 101 MEQ/L (99-109); GFR ESTIMATE (CALCULATED) 38 mL/min/; POTASSIUM 3.9 MEQ/L (3.7-5.4); SAMPLE HEMOLYSIS CHECK 0; SAMPLE ICTERIC CHECK 0; SAMPLE LIPEMIA CHECK 0; SODIUM 131 MEQ/L (136-147); UREA NITROGEN (BUN) 46 mg/dL (9-23)
[2017-05-04 06:47] LABS: GLUCOSE 86 mg/dL (70-99)
[2017-05-04 07:36] LABS: POINT-OF-CARE METER ID UU13113698
[2017-05-04 10:06] LABS: CREATINE KINASE 82 IU/L (1-294); URIC ACID 9.9 mg/dL (3.1-9.2)
[2017-05-04 10:21] LABS: UR CREATININE CONCENTRATION 122.3 MG/DL
[2017-05-04 10:23] LABS: URINE TOTAL PROTEIN 275 MG/DL (0-10)
[2017-05-04 11:12] LABS: POINT-OF-CARE METER ID UU13113698
[2017-05-04 21:15] LABS: POINT-OF-CARE METER ID UU13113781
[2017-05-05 01:11] LABS: POINT-OF-CARE METER ID UU13113781
[2017-05-05 03:30] VITALS: BP 116/65
[2017-05-05 05:57] LABS: ANION GAP 6 MEQ/L (2-14); C3 COMPLEMENT 115 MG/DL (58-170); C4 COMPLEMENT 9 MG/DL (10-40); CHLORIDE 102 MEQ/L (99-109); GFR ESTIMATE (CALCULATED) 38 mL/min/; GLUCOSE 101 mg/dL (70-99); POTASSIUM 3.9 MEQ/L (3.7-5.4); SAMPLE HEMOLYSIS CHECK 0; SAMPLE ICTERIC CHECK 0; SAMPLE LIPEMIA CHECK 0; SODIUM 133 MEQ/L (136-147); UREA NITROGEN (BUN) 47 mg/dL (9-23)
[2017-05-05 08:00] VITALS: BP 125/85
[2017-05-05 08:14] LABS: POINT-OF-CARE METER ID UU13113781
[2017-05-05 10:18] LABS: HBSG INDEX 0.23
[2017-05-05 10:19] LABS: AHBS INDEX 0; HEPATITIS B SURFACE ANTIBODY Nonreactive; HPCA INDEX 0.05
[2017-05-05 11:31] LABS: POINT-OF-CARE METER ID UU13113781
[2017-05-05 12:07] LABS: IFE GEL NO. CAPI
[2017-05-05 12:35] VITALS: BP 100/62
[2017-05-05 13:44] LABS: IFE GEL NO. CAPI
[2017-05-05 19:00] VITALS: BP 117/80
[2017-05-05 21:06] LABS: POINT-OF-CARE METER ID UU13113803
[2017-05-05 23:30] VITALS: BP 128/86
[2017-05-06 04:00] VITALS: BP 133/85
[2017-05-06 06:16] LABS: ANION GAP 8 MEQ/L (2-14); CHLORIDE 101 MEQ/L (99-109); GFR ESTIMATE (CALCULATED) 36 mL/min/; GLUCOSE 98 mg/dL (70-99); MAGNESIUM 1.9 mg/dl (1.3-2.7); POTASSIUM 4.5 MEQ/L (3.7-5.4); SAMPLE HEMOLYSIS CHECK 0; SAMPLE ICTERIC CHECK 0; SAMPLE LIPEMIA CHECK 0; SODIUM 132 MEQ/L (136-147); UREA NITROGEN (BUN) 51 mg/dL (9-23)
[2017-05-06 07:34] LABS: POINT-OF-CARE METER ID UU13113698
[2017-05-06 08:17] VITALS: BP 122/88
[2017-05-06 11:09] VITALS: BP 112/82
[2017-05-06 11:14] LABS: POINT-OF-CARE METER ID UU13113698
[2017-05-06 15:48] VITALS: BP 108/72
[2017-05-06 16:23] LABS: POINT-OF-CARE METER ID UU13113698
[2017-05-06 20:05] VITALS: BP 117/70
[2017-05-06 23:15] VITALS: BP 120/78
[2017-05-07 04:40] LABS: BODY FLUID PH 7.9 (())
[2017-05-07 06:34] LABS: ANION GAP 7 MEQ/L (2-14); CHLORIDE 102 MEQ/L (99-109); GFR ESTIMATE (CALCULATED) 36 mL/min/; GLOBULINS 3.3 G/DL (2.3-3.5); GLUCOSE 122 mg/dL (70-99); POTASSIUM 4.5 MEQ/L (3.7-5.4); SAMPLE HEMOLYSIS CHECK 0; SAMPLE ICTERIC CHECK 0; SAMPLE LIPEMIA CHECK 0; SODIUM 134 MEQ/L (136-147); UREA NITROGEN (BUN) 50 mg/dL (9-23)
[2017-05-07 06:36] VITALS: BP 137/65
[2017-05-07 07:49] LABS: POINT-OF-CARE METER ID UU13113803
[2017-05-07 08:00] VITALS: BP 154/95
[2017-05-07 09:23] LABS: MAGNESIUM 1.9 mg/dl (1.3-2.7)
[2017-05-07 12:32] VITALS: BP 143/93
[2017-05-07 15:46] VITALS: BP 139/86
[2017-05-07 16:17] LABS: POINT-OF-CARE METER ID UU13113803
[2017-05-07 19:10] VITALS: BP 155/94
[2017-05-07 19:43] LABS: MYELOPEROXIDASE ANTIBODY (MPO) <1.0 AI (<1.0); PROTEINASE-3 ANTIBODY+ <1.0 AI (<1.0)
[2017-05-07 21:16] LABS: POINT-OF-CARE METER ID UU13113803
[2017-05-07 23:55] VITALS: BP 138/86
[2017-05-08 03:20] VITALS: BP 145/90
[2017-05-08 05:59] LABS: ANION GAP 6 MEQ/L (2-14); CHLORIDE 104 MEQ/L (99-109); GFR ESTIMATE (CALCULATED) 38 mL/min/; GLUCOSE 174 mg/dL (70-99); SAMPLE HEMOLYSIS CHECK 0; SAMPLE ICTERIC CHECK 0; SAMPLE LIPEMIA CHECK 0; SODIUM 136 MEQ/L (136-147); UREA NITROGEN (BUN) 45 mg/dL (9-23)
[2017-05-08 07:20] VITALS: BP 134/74
[2017-05-08 07:37] LABS: POINT-OF-CARE METER ID UU13113698
[2017-05-08] MEDS ORDERED: ELIQUIS5 MG PO (10:40)
[2017-05-08 11:08] LABS: POINT-OF-CARE METER ID UU13113781
[2017-05-08 11:52] LABS: ALBUMIN 2.36 G/DL (3.6-4.9); ALBUMIN PERCENT 42.9 % (49.3-67.1); ALPHA-1 GLOBULIN 0.27 G/DL (0.15-0.40); ALPHA-1 PERCENT 4.9 % (2.1-5.5); ALPHA-2 GLOBULIN 0.62 G/DL (0.45-0.85); ALPHA-2 PERCENT 11.3 % (6.2-11.6); BETA PERCENT 10.4 % (8.9-15.8); GAMMA PERCENT 30.5 % (8.6-18.6); SERUM GEL NO. 95-3
[2017-05-08 12:30] VITALS: BP 128/88
[2017-05-08 15:12] VITALS: BP 164/82
[2017-05-08 16:21] LABS: POINT-OF-CARE METER ID UU13113698
[2017-05-08 19:40] VITALS: BP 152/80
[2017-05-08 20:53] LABS: POINT-OF-CARE METER ID UU13113781
[2017-05-08 23:35] VITALS: BP 142/82
[2017-05-09 04:10] VITALS: BP 162/90
[2017-05-09 06:45] LABS: ANION GAP 3 MEQ/L (2-14); CHLORIDE 103 MEQ/L (99-109); GFR ESTIMATE (CALCULATED) 44 mL/min/; POTASSIUM 3.5 MEQ/L (3.7-5.4); SAMPLE HEMOLYSIS CHECK 0; SAMPLE ICTERIC CHECK 0; SAMPLE LIPEMIA CHECK 0; SODIUM 136 MEQ/L (136-147); UREA NITROGEN (BUN) 39 mg/dL (9-23)
[2017-05-09 06:54] LABS: GLUCOSE 80 mg/dL (70-99)
[2017-05-09 06:59] VITALS: BP 132/80
[2017-05-09 07:39] LABS: POINT-OF-CARE METER ID UU13113781
[2017-05-09 09:31] LABS: POINT-OF-CARE METER ID UU13113803
[2017-05-09 11:06] LABS: EOSINOPHIL (%) 1.5 % (0-5); EOSINOPHIL COUNT 0.1 K/uL (0-0.3); HEMATOCRIT 38.8 % (38.0-50.0); IMMATURE GRANULOCYTE (%) 1.3 % (0.0-0.7); IMMATURE GRANULOCYTE COUNT 0.1 K/uL; INSTRUMENT ABS NEUTROPHIL CT 3.5 K/uL; LYMPHOCYTE COUNT 0.7 K/uL (1.0-2.8); MCH 28.5 PG (29.0-34.0); MCHC 31.2 G/DL (30.0-36.0); MCV 91.3 FL (86-99); MEAN PLAT.VOLUME 9.9 uM^3 (9.0-12.4); MONOCYTE (%) 8.8 % (3-12); MONOCYTE COUNT 0.4 K/uL (0-0.8); NEUTROPHIL (%) 72.7 % (45-76); NEUTROPHIL COUNT 3.5 K/uL (1.8-6.4); PLATELET COUNT 143 K/uL (156-360); RBC DIS.WIDTH-CV 19.5 % (11.8-14.6); RBC DIS.WIDTH-SD 65.3 % (39-53); RED BLOOD COUNT 4.25 M/uL (4.00-5.50); WHITE BLOOD COUNT 4.8 K/uL (4.1-10.2)
[2017-05-09 11:47] LABS: POINT-OF-CARE METER ID UU13113698
[2017-05-09 11:55] VITALS: BP 154/85
[2017-05-09] MEDS ORDERED: CLOPIDOGREL75 MG PO (12:22)
[2017-05-09] MEDS ORDERED: BUMETANIDE1 MG PO (12:22)
[2017-05-09] MEDS ORDERED: TRAMADOL HCL50 MG PO (12:22)
[2017-05-09] MEDS ORDERED: LISINOPRIL5 MG PO (12:22)
[2017-05-09] MEDS ORDERED: LEVAQUIN500 MG PO (12:22)
[2017-05-10 00:30] LABS: Cryoglobulin, Qualitative None Detected (None Detected)
[2017-05-11 07:47] LABS: URINE TOTAL PROTEIN 61 MG/DL (0-10)
== END 2017-05-09 14:15 | disposition home health service (06) | DRG 872 ==
LOC: EME 17:31 → EDOF 23:25 → 4EAST 23:25 → ENRESERV 23:26 → 4EAST 05-03 01:02
PROVIDERS: Emergency Medicine; Hospitalist; Internal Medicine; Internal Medicine Cardiovascular Disease; Internal Medicine Hematology & Oncology; Physician Assistant; Radiology Diagnostic Radiology
PROC: 0W9G3ZZ Drainage of Peritoneal Cavity, Percutaneous Approach (ICD-10-PCS; principal; 2017-05-03)
DX: A41.02 Sepsis due to Methicillin resistant Staphylococcus aureus (principal); I47.2 Ventricular tachycardia; E87.2 Acidosis; N17.9 Acute kidney failure, unspecified; N18.3 Chronic kidney disease, stage 3 (moderate); R18.8 Other ascites; I13.0 Hypertensive heart and chronic kidney disease with heart failure and stage 1 through stage 4 chronic kidney disease, or unspecified chronic kidney disease; I50.42 Chronic combined systolic (congestive) and diastolic (congestive) heart failure; E78.5 Hyperlipidemia, unspecified; E11.21 Type 2 diabetes mellitus with diabetic nephropathy; L03.115 Cellulitis of right lower limb; R60.1 Generalized edema; E11.22 Type 2 diabetes mellitus with diabetic chronic kidney disease; E11.622 Type 2 diabetes mellitus with other skin ulcer; E11.51 Type 2 diabetes mellitus with diabetic peripheral angiopathy without gangrene; E11.40 Type 2 diabetes mellitus with diabetic neuropathy, unspecified; D47.2 Monoclonal gammopathy; Z95.5 Presence of coronary angioplasty implant and graft; Z89.512 Acquired absence of left leg below knee; I25.10 Atherosclerotic heart disease of native coronary artery without angina pectoris; I25.5 Ischemic cardiomyopathy; I25.2 Old myocardial infarction; I51.3 Intracardiac thrombosis, not elsewhere classified; I87.2 Venous insufficiency (chronic) (peripheral); Z83.3 Family history of diabetes mellitus; Z80.8 Family history of malignant neoplasm of other organs or systems; Z86.711 Personal history of pulmonary embolism; Z79.4 Long term (current) use of insulin; Z79.02 Long term (current) use of antithrombotics/antiplatelets; Z79.01 Long term (current) use of anticoagulants; E88.09 Other disorders of plasma-protein metabolism, not elsewhere classified; R42 Dizziness and giddiness; Z95.9 Presence of cardiac and vascular implant and graft, unspecified; I27.2 Other secondary pulmonary hypertension; I08.1 Rheumatic disorders of both mitral and tricuspid valves; E86.1 Hypovolemia; Z68.32 Body mass index [BMI] 32.0-32.9, adult; L97.919 Non-pressure chronic ulcer of unspecified part of right lower leg with unspecified severity; L97.119 Non-pressure chronic ulcer of right thigh with unspecified severity; Z77.22 Contact with and (suspected) exposure to environmental tobacco smoke (acute) (chronic); K72.90 Hepatic failure, unspecified without coma; E87.1 Hypo-osmolality and hyponatremia; R31.29 Other microscopic hematuria; I49.3 Ventricular premature depolarization; Z91.14 Patient's other noncompliance with medication regimen; E55.9 Vitamin D deficiency, unspecified; R35.0 Frequency of micturition; D89.2 Hypergammaglobulinemia, unspecified; D64.9 Anemia, unspecified; Z79.899 Other long term (current) drug therapy; Z87.442 Personal history of urinary calculi; M25.571 Pain in right ankle and joints of right foot
CPT/HCPCS: 49083; 71010; 73590; 73610; 74176; 77075; 80048; 80069; 80076; 81003; 81050; 82306; 82436; 82550; 82570; 82595 90; 82945; 82948; 83605; 83615 91; 83690; 83735; 83880; 83883 90; 83935; 83986 90; 84156; 84157; 84165; 84166; 84443; 84484; 84540; 84550; 85025; 85027; 85610; 85730; 86021 90; 86160; 86334; 86335; 86706; 86803; 87040; 87070; 87075; 87077; 87186; 87205; 87340; 87641; 88108; 89051; 93005; 93306; 94799; 99281; 99285; A6260; J0690; J0692; J1644; J1815; J1940; J2405; J2543; J3370; J7050; P9047

== ENCOUNTER 2017-06-22 18:15 | Inpatient (IN) | payer OTHER ==
[~2017-06-22] VITALS: Ht 190.5 cm; Wt 97.5 kg
[~2017-06-22 18:15] MED LIST changes: +BASAGLAR K100 UNIT/1 SC; +BUMETANIDE1 MG PO; +CLOPIDOGREL75 MG PO; +COL-RITE100 M1 PO; +ELIQUIS5 MG PO; +K-TAB10 MEQ PO; +LASIX20 MG PO; +LEVAQUIN500 MG PO; +LISINOPRIL5 MG PO; +SILVADENE20 GM TP; +TRAMADOL HCL50 MG PO
[2017-06-22 18:59] LABS: HEMATOCRIT 48.3 % (38.0-50.0); MCH 29.8 PG (29.0-34.0); MCHC 31.5 G/DL (30.0-36.0); MCV 94.7 FL (86-99); MEAN PLAT.VOLUME 9.6 uM^3 (9.0-12.4); PLATELET COUNT 200 K/uL (156-360); RBC DIS.WIDTH-CV 16.7 % (11.8-14.6); WHITE BLOOD COUNT 6.4 K/uL (4.1-10.2)
[2017-06-22 19:08] LABS: CHLORIDE 108 mEq/L (99-109); POTASSIUM 4.6 mEq/L (3.7-5.4); SODIUM 135 mEq/L (136-147)
[2017-06-22 19:10] LABS: GLUCOSE 158 mg/dL (70-99)
[2017-06-22 19:11] LABS: ANION GAP 6 MEQ/L (2-14)
[2017-06-22 19:13] LABS: GFR ESTIMATE (CALCULATED) 47 mL/min/
[2017-06-22 19:14] LABS: UREA NITROGEN (BUN) 41 mg/dL (9-23)
[2017-06-22 19:47] LABS: ALKALINE PHOSPHATASE 566 IU/L (3-129); TOTAL BILIRUBIN 1.2 mg/dL (0.0-1.0)
[2017-06-22 19:56] LABS: TROP-I INTERPRETATION NEGATIVE; TROPONIN-I 0.22 ng/mL (0.0-0.30)
[2017-06-23 01:26] VITALS: BP 159/102
[2017-06-23 04:15] VITALS: BP 104/65
[2017-06-23 06:29] LABS: TROP-I INTERPRETATION NEGATIVE; TROPONIN-I 0.18 ng/mL (0.0-0.30)
[2017-06-23 07:49] VITALS: BP 126/79
[2017-06-23 08:26] LABS: CHLORIDE 107 mEq/L (99-109); SODIUM 135 mEq/L (136-147)
[2017-06-23 08:29] LABS: ANION GAP 11 MEQ/L (2-14)
[2017-06-23 08:31] LABS: GFR ESTIMATE (CALCULATED) > 59 mL/min/
[2017-06-23 08:32] LABS: UREA NITROGEN (BUN) 37 mg/dL (9-23)
[2017-06-23 08:37] LABS: GLUCOSE 107 mg/dL (70-99)
[2017-06-23] MEDS ORDERED: ELIQUIS5 MG PO (09:19)
[2017-06-23 12:00] VITALS: BP 138/96
[2017-06-23 13:24] LABS: TROP-I INTERPRETATION NEGATIVE; TROPONIN-I 0.16 ng/mL (0.0-0.30)
[2017-06-23 15:51] VITALS: BP 140/90
[2017-06-23 20:18] VITALS: BP 134/94
[2017-06-24 04:04] VITALS: BP 133/92
[2017-06-24 07:22] LABS: ANION GAP 9 MEQ/L (2-14); CHLORIDE 105 MEQ/L (99-109); GFR ESTIMATE (CALCULATED) 50 mL/min/; GLUCOSE 92 mg/dL (70-99); MAGNESIUM 1.8 mg/dl (1.3-2.7); POTASSIUM 4.2 MEQ/L (3.7-5.4); SAMPLE HEMOLYSIS CHECK 0; SAMPLE ICTERIC CHECK 0; SAMPLE LIPEMIA CHECK 0; SODIUM 135 MEQ/L (136-147); UREA NITROGEN (BUN) 39 mg/dL (9-23)
[2017-06-24 08:05] VITALS: BP 140/88
[2017-06-24 11:21] VITALS: BP 134/89
[2017-06-24 15:49] VITALS: BP 138/65
[2017-06-24 20:34] VITALS: BP 125/79
[2017-06-25 00:12] VITALS: BP 134/89
[2017-06-25 03:55] VITALS: BP 117/66
[2017-06-25 07:04] LABS: HEMATOCRIT 42.9 % (38.0-50.0); MCH 29.4 PG (29.0-34.0); MCV 94.9 FL (86-99); MEAN PLAT.VOLUME 9.9 uM^3 (9.0-12.4); PLATELET COUNT 185 K/uL (156-360); RBC DIS.WIDTH-CV 16.8 % (11.8-14.6); RBC DIS.WIDTH-SD 58.4 % (39-53); RED BLOOD COUNT 4.52 M/uL (4.00-5.50)
[2017-06-25 07:29] LABS: ANION GAP 5 MEQ/L (2-14); CHLORIDE 105 MEQ/L (99-109); GFR ESTIMATE (CALCULATED) 47 mL/min/; GLUCOSE 77 mg/dL (70-99); INTER. NORMALIZED RATIO 1.2; POTASSIUM 4.4 MEQ/L (3.7-5.4); PROTHROMBIN TIME 13.3 SEC (10.2-12.9); SAMPLE HEMOLYSIS CHECK 0; SAMPLE ICTERIC CHECK 0; SAMPLE LIPEMIA CHECK 0; SODIUM 136 MEQ/L (136-147); UREA NITROGEN (BUN) 40 mg/dL (9-23)
[2017-06-25 07:55] VITALS: BP 146/97
[2017-06-25 09:31] LABS: TYPE OF FLUID PARACENTESIS
[2017-06-25 10:22] LABS: BODY FLUID PROTEIN < 3.0 G/DL
[2017-06-25 11:01] LABS: BODY FLUID WBC'S 154 /MM^3 (0-500); WBC AREA COUNTED 8; WBC DILUTION 1; WHITE CELL RAW COUNT 123
[2017-06-25 11:05] LABS: BODY FLUID RBC'S 261 /MM^3 (0-100); RED CELL AREA COUNTED 8; RED CELL DILUTION 1
[2017-06-25 11:11] LABS: BODY FLUID EOSINOPHILS 0 % (0-25); MONO RAW COUNT 83; MONONUCLEAR WBC'S 83 %; POLY RAW COUNT 17; POLYNUCLEAR WBC'S 17 % (0-25)
[2017-06-25 11:39] VITALS: BP 138/90
[2017-06-25 16:07] VITALS: BP 126/81
[2017-06-25 17:01] LABS: POINT-OF-CARE METER ID UU14174225
[2017-06-25 23:44] VITALS: BP 123/88
[2017-06-26] VITALS (7 sets, daily range): BP systolic 119–154; BP diastolic 67–99
[2017-06-26 06:02] LABS: EOSINOPHIL (%) 1.2 % (0-5); EOSINOPHIL COUNT 0.1 K/uL (0-0.3); HEMATOCRIT 42.2 % (38.0-50.0); IMMATURE GRANULOCYTE (%) 0.4 % (0.0-0.7); INSTRUMENT ABS NEUTROPHIL CT 3.3 K/uL; MCH 29.9 PG (29.0-34.0); MCHC 31.3 G/DL (30.0-36.0); MCV 95.7 FL (86-99); MONOCYTE (%) 8.4 % (3-12); MONOCYTE COUNT 0.4 K/uL (0-0.8); NEUTROPHIL (%) 68.4 % (45-76); NEUTROPHIL COUNT 3.3 K/uL (1.8-6.4); PLATELET COUNT 165 K/uL (156-360); RBC DIS.WIDTH-CV 16.8 % (11.8-14.6); RBC DIS.WIDTH-SD 59.2 % (39-53); RED BLOOD COUNT 4.41 M/uL (4.00-5.50); WHITE BLOOD COUNT 4.9 K/uL (4.1-10.2)
[2017-06-26 06:10] LABS: POINT-OF-CARE METER ID UU14188625
[2017-06-26 06:10] LABS: CHLORIDE 104 mEq/L (99-109); POTASSIUM 4.5 mEq/L (3.7-5.4); SODIUM 138 mEq/L (136-147)
[2017-06-26 06:12] LABS: INTER. NORMALIZED RATIO 1.3; PROTHROMBIN TIME 14.2 SEC (10.2-12.9)
[2017-06-26 06:14] LABS: ANION GAP 8 MEQ/L (2-14)
[2017-06-26 06:16] LABS: GFR ESTIMATE (CALCULATED) 44 mL/min/
[2017-06-26 06:17] LABS: UREA NITROGEN (BUN) 41 mg/dL (9-23)
[2017-06-26 06:18] LABS: GLUCOSE 106 mg/dL (70-99)
[2017-06-26 06:28] LABS: PTT 31.1 SEC (25-37)
[2017-06-26 11:22] LABS: FASTING STATUS NONFASTING
[2017-06-26 12:01] LABS: Estimated Average Glucose 148 mg/dL (70-123)
[2017-06-26 12:32] LABS: HDL CHOLESTEROL 25 MG/DL (Desirable>=40); LDL CHOLESTEROL 88 mg/dL (Desirable<100); NON-HDL CHOLESTEROL 99 mg/dL (Desirable<160); TOTAL CHOLESTEROL 124 mg/dL (Desirable<200); TRIGLYCERIDES 57 MG/DL (Normal: <150)
[2017-06-26 12:49] LABS: HEMOGLOBIN A1c (GLYCOHEMOGLOB) 6.8 % HGB (Below 5.7)
[2017-06-26 17:02] LABS: POINT-OF-CARE METER ID UU14188625
[2017-06-26 22:08] LABS: INTER. NORMALIZED RATIO 2.1
[2017-06-26 22:28] LABS: PROTHROMBIN TIME 24.1 SEC (10.2-12.9)
[2017-06-26 22:29] LABS: PTT 57.8 SEC (25-37)
[2017-06-27 04:06] VITALS: BP 114/65
[2017-06-27 06:53] LABS: INTER. NORMALIZED RATIO 2.8; PROTHROMBIN TIME 32.5 SEC (10.2-12.9)
[2017-06-27 06:56] LABS: PTT 55.1 SEC (25-37)
[2017-06-27 07:36] LABS: POINT-OF-CARE METER ID UU14188625
[2017-06-27 08:00] VITALS: BP 135/81
[2017-06-27 08:07] LABS: ANION GAP 8 MEQ/L (2-14); CHLORIDE 107 MEQ/L (99-109); GFR ESTIMATE (CALCULATED) 50 mL/min/; GLUCOSE 98 mg/dL (70-99); POTASSIUM 4.5 MEQ/L (3.7-5.4); SAMPLE HEMOLYSIS CHECK 0; SAMPLE ICTERIC CHECK 0; SAMPLE LIPEMIA CHECK 0; SODIUM 139 MEQ/L (136-147); UREA NITROGEN (BUN) 35 mg/dL (9-23)
[2017-06-27 11:54] VITALS: BP 143/82
[2017-06-27 12:28] LABS: POINT-OF-CARE METER ID UU13113717
[2017-06-27 13:00] LABS: INTER. NORMALIZED RATIO 3.6; PROTHROMBIN TIME 41.8 SEC (10.2-12.9)
[2017-06-27 13:03] LABS: PTT 60.1 SEC (25-37)
[2017-06-27 15:24] VITALS: BP 158/88
[2017-06-27 18:19] VITALS: BP 150/90
[2017-06-27 21:24] LABS: POINT-OF-CARE METER ID UU14188625
[2017-06-28 04:05] VITALS: BP 138/77
[2017-06-28 06:29] LABS: HEMATOCRIT 41.5 % (38.0-50.0); MCH 30.9 PG (29.0-34.0); MCHC 32.3 G/DL (30.0-36.0); MCV 95.8 FL (86-99); MEAN PLAT.VOLUME 10.2 uM^3 (9.0-12.4); PLATELET COUNT 152 K/uL (156-360); RBC DIS.WIDTH-CV 16.6 % (11.8-14.6); RBC DIS.WIDTH-SD 58.4 % (39-53); RED BLOOD COUNT 4.33 M/uL (4.00-5.50); WHITE BLOOD COUNT 5.5 K/uL (4.1-10.2)
[2017-06-28 06:38] LABS: INTER. NORMALIZED RATIO 4.4; PROTHROMBIN TIME 51.5 SEC (10.2-12.9)
[2017-06-28 06:52] LABS: ANION GAP 5 MEQ/L (2-14); CHLORIDE 103 MEQ/L (99-109); GFR ESTIMATE (CALCULATED) 55 mL/min/; GLUCOSE 145 mg/dL (70-99); POTASSIUM 4.4 MEQ/L (3.7-5.4); SAMPLE HEMOLYSIS CHECK 0; SAMPLE ICTERIC CHECK 0; SAMPLE LIPEMIA CHECK 0; SODIUM 135 MEQ/L (136-147); UREA NITROGEN (BUN) 34 mg/dL (9-23)
[2017-06-28 08:09] VITALS: BP 138/83
[2017-06-28 08:45] LABS: POINT-OF-CARE METER ID UU13113717
[2017-06-28 12:00] VITALS: BP 147/93
[2017-06-28 12:33] LABS: POINT-OF-CARE METER ID UU13113717
[2017-06-28 16:00] VITALS: BP 152/95
[2017-06-28 20:26] VITALS: BP 151/95
[2017-06-28 23:59] VITALS: BP 99/55
[2017-06-29 06:20] LABS: HEMATOCRIT 44.4 % (38.0-50.0); MCH 30.5 PG (29.0-34.0); MCHC 31.8 G/DL (30.0-36.0); MCV 95.9 FL (86-99); MEAN PLAT.VOLUME 9.8 uM^3 (9.0-12.4); PLATELET COUNT 160 K/uL (156-360); RBC DIS.WIDTH-CV 16.2 % (11.8-14.6); RBC DIS.WIDTH-SD 57.4 % (39-53); RED BLOOD COUNT 4.63 M/uL (4.00-5.50); WHITE BLOOD COUNT 5.2 K/uL (4.1-10.2)
[2017-06-29 06:33] LABS: INTER. NORMALIZED RATIO 3.2
[2017-06-29 06:42] LABS: PROTHROMBIN TIME 37.2 SEC (10.2-12.9)
[2017-06-29 07:25] VITALS: BP 149/76
[2017-06-29 08:11] LABS: ANION GAP 7 MEQ/L (2-14); CHLORIDE 102 MEQ/L (99-109); POTASSIUM 4.7 MEQ/L (3.7-5.4); SAMPLE HEMOLYSIS CHECK 0; SAMPLE ICTERIC CHECK 0; SAMPLE LIPEMIA CHECK 0; SODIUM 137 MEQ/L (136-147)
[2017-06-29 08:21] LABS: GFR ESTIMATE (CALCULATED) 50 mL/min/; UREA NITROGEN (BUN) 32 mg/dL (9-23)
[2017-06-29 08:33] LABS: GLUCOSE 107 mg/dL (70-99)
[2017-06-29 11:14] VITALS: BP 149/88
[2017-06-29] MEDS ORDERED: FLORASTOR250 MG PO (14:05)
[2017-06-29] MEDS ORDERED: COUMADIN2.5 MG PO (14:14)
[2017-06-29] MEDS ORDERED: KLOR-CON SPRIN10 MEQ PO (14:15)
[2017-06-29] MEDS ORDERED: KEFLEX500 MG PO (14:36)
[2017-06-29 15:14] VITALS: BP 145/82
== END 2017-06-29 16:24 | disposition home health service (06) | DRG 291 ==
LOC: EME 18:15 → 5SOUTH 22:29 → EDOF 22:29 → ENRESERV 22:31 → EDOF 06-23 00:56 → 5SOUTH 06-23 00:59 → ENRESERV 06-23 00:59 → 5SOUTH 06-29 16:24
PROVIDERS: Hospitalist; Internal Medicine; Internal Medicine Cardiovascular Disease; Nurse Practitioner Adult Health; Nurse Practitioner Family; Physician Assistant
PROC: 0W9G3ZZ Drainage of Peritoneal Cavity, Percutaneous Approach (ICD-10-PCS; principal; 2017-06-25)
DX: I13.0 Hypertensive heart and chronic kidney disease with heart failure and stage 1 through stage 4 chronic kidney disease, or unspecified chronic kidney disease (principal); I50.23 Acute on chronic systolic (congestive) heart failure; R18.8 Other ascites; E11.22 Type 2 diabetes mellitus with diabetic chronic kidney disease; N18.3 Chronic kidney disease, stage 3 (moderate); I31.3 Pericardial effusion (noninflammatory); I63.012 Cerebral infarction due to thrombosis of left vertebral artery; R29.810 Facial weakness; R47.01 Aphasia; G81.91 Hemiplegia, unspecified affecting right dominant side; R41.82 Altered mental status, unspecified; L03.115 Cellulitis of right lower limb; I87.2 Venous insufficiency (chronic) (peripheral); L97.919 Non-pressure chronic ulcer of unspecified part of right lower leg with unspecified severity; I51.3 Intracardiac thrombosis, not elsewhere classified; I27.2 Other secondary pulmonary hypertension; E87.1 Hypo-osmolality and hyponatremia; E87.3 Alkalosis; E83.51 Hypocalcemia; E86.1 Hypovolemia; I07.1 Rheumatic tricuspid insufficiency; D47.2 Monoclonal gammopathy; I47.1 Supraventricular tachycardia; I49.3 Ventricular premature depolarization; E11.21 Type 2 diabetes mellitus with diabetic nephropathy; E55.9 Vitamin D deficiency, unspecified; E11.42 Type 2 diabetes mellitus with diabetic polyneuropathy; E11.51 Type 2 diabetes mellitus with diabetic peripheral angiopathy without gangrene; I25.5 Ischemic cardiomyopathy; I25.10 Atherosclerotic heart disease of native coronary artery without angina pectoris; E78.5 Hyperlipidemia, unspecified; G43.909 Migraine, unspecified, not intractable, without status migrainosus; I25.2 Old myocardial infarction; R11.2 Nausea with vomiting, unspecified; Z91.19 Patient's noncompliance with other medical treatment and regimen; Z82.49 Family history of ischemic heart disease and other diseases of the circulatory system; Z79.01 Long term (current) use of anticoagulants; Z83.3 Family history of diabetes mellitus; Z86.711 Personal history of pulmonary embolism; Z86.718 Personal history of other venous thrombosis and embolism; Z89.512 Acquired absence of left leg below knee; Z95.5 Presence of coronary angioplasty implant and graft
CPT/HCPCS: 49083; 70450; 70544; 70549; 70551; 71020; 80048; 80053; 80061; 82948; 83036; 83735; 83880; 83986 90; 84157; 84484; 85025; 85027; 85610; 85730; 87070; 87075; 87205; 88108; 88305; 89051; 93005; 93306; 94799; 99281; 99285; A6242; J0690; J1815; J1940; J2270